=== PATIENT | female | born 1995 | race Caucasian/White ===

== ENCOUNTER 2023-12-28 14:14 | Outpatient (CLI) | payer OTHER, SELFPAY ==
[2023-12-28 14:54] LABS: Absolute Lymphocyte Count 1.86 X10^3/uL (0.83-4.51); Absolute Neutrophil Count 4.7 X10^3/uL (2.0-7.7); Basophil# 0.03 X10^3/uL; Basophil% 0.4 % (0-1); Eosinophils% 1.4 % (0-5); Hematocrit 35.6 % (37-47); Hemoglobin 12.1 g/dL (12.0-15.0); Lymphocyte # 1.86 X10^3/ul (0.83-4.51); Lymphocyte % 25.5 % (19-41); Mean Corpuscular Hgb 31.5 pg (27.0-32.0); Mean Corpuscular Volume 92.7 fL (81-99); Mean Platelet Vol. 9.6 fl (6.2-12.0); Monocyte# 0.62 X10^3/uL; Monocyte% 8.5 % (0-10); NRBC Flagged by Analyzer 0 % (0-5); Neutrophil # 4.67 X10^3/uL (2.7-7.7); Neutrophil % 63.9 % (47-70); Platelet Count 214 K/mm3 (150-450); RBC Distribution Width CV 12.5 % (11.6-14.6); Red Blood Count 3.84 M/mm3 (4.2-5.4); White Blood Count 7.3 K/mm3 (4.4-11.0)
[2023-12-28 15:57] LABS: HIV - WCH Non-Reactive (Nonreactive); Hepatitis B Surface Antigen Non-Reactive (Nonreactive); Hepatitis C Antibody Non-Reactive (Nonreactive); Rubella IgG Reactive (Nonreactive)
[2023-12-31 15:57] LABS: Syphilis Antibodies Non-reactive
[2023-12-31 21:07] LABS: Chlamydia By Nucleic Acid AMP Negative (Negative); Gonococcus By Nucleic Acid AMP Negative (Negative)
[2024-01-03 21:20] LABS: HPV Reflexed? NOT INDICATED
== END 2023-12-28 23:59 | disposition home or self-care (01) ==
PROVIDERS: Referring Provider Advanced Practice Midwife; Visit Provider Advanced Practice Midwife
DX: O09.90 Supervision of high risk pregnancy, unspecified, unspecified trimester (principal); Z3A.00 Weeks of gestation of pregnancy not specified; Z12.4 Encounter for screening for malignant neoplasm of cervix
CPT/HCPCS: 36415; 85025; 86703; 86762; 86780; 86803; 86850; 86900; 86901; 87086; 87340; 87491; 87591; 88175; G0145

== ENCOUNTER → 2024-05-15 | Outpatient (CLI) | payer OTHER, SELFPAY ==
[2024-05-15 17:13] LABS: Absolute Lymphocyte Count 1.49 X10^3/uL (0.83-4.51); Absolute Neutrophil Count 3.6 X10^3/uL (2.0-7.7); Basophil# 0.01 X10^3/uL; Basophil% 0.2 % (0-1); Eosinophil# 0.05 X10^3/uL; Eosinophils% 0.9 % (0-5); Hematocrit 31.2 % (37-47); Hemoglobin 10.2 g/dL (12.0-15.0); Lymphocyte # 1.49 X10^3/ul (0.83-4.51); Lymphocyte % 27.5 % (19-41); Mean Corp Hgb Conc 32.7 g/dL (32-36); Mean Corpuscular Hgb 31.5 pg (27.0-32.0); Mean Corpuscular Volume 96.3 fL (81-99); Mean Platelet Vol. 10.2 fl (6.2-12.0); Monocyte# 0.31 X10^3/uL; Monocyte% 5.7 % (0-10); NRBC Flagged by Analyzer 0 % (0-5); Neutrophil # 3.55 X10^3/uL (2.7-7.7); Neutrophil % 65.5 % (47-70); Platelet Count 219 K/mm3 (150-450); RBC Distribution Width CV 12.9 % (11.6-14.6); RBC Distribution Width SD 45.1 fl (35.1-43.9); Red Blood Count 3.24 M/mm3 (4.2-5.4); White Blood Count 5.4 K/mm3 (4.4-11.0)
[2024-05-15 17:34] LABS: Glucose Challenge Gest 1H 50g 136 mg/dL (70-140)
[2024-05-16 13:03] LABS: HIV - WCH Non-Reactive (Nonreactive); Syphilis Antibodies Non-reactive
== END | disposition home or self-care (01) ==
LOC: LAB 15:04
PROVIDERS: Referring Provider Obstetrics & Gynecology; Visit Provider Obstetrics & Gynecology
DX: O09.92 Supervision of high risk pregnancy, unspecified, second trimester (principal); Z3A.00 Weeks of gestation of pregnancy not specified; Z13.1 Encounter for screening for diabetes mellitus
CPT/HCPCS: 36415; 82950; 85025; 86703; 86780

== ENCOUNTER → 2024-07-02 | Outpatient (CLI) | payer OTHER, SELFPAY | END | disposition home or self-care (01) | PROVIDERS: Visit Provider Obstetrics & Gynecology | DX: O09.92 Supervision of high risk pregnancy, unspecified, second trimester (principal); Z3A.00 Weeks of gestation of pregnancy not specified | CPT/HCPCS: 87081 ==

== ENCOUNTER 2024-07-29 12:15 | Inpatient (IN) | payer OTHER, SELFPAY ==
[2024-07-29] VITALS (19 sets, daily range): BP systolic 114–141; BP diastolic 71–100; PULSE 52–86; RESP 15–18; TEMP 36.6–37.4; O2SAT 80–100; BMI 23.3
[2024-07-29] MEDS: 0.9% Saline Lock 10 ML Syringe IV (12:05)
--- NOTE | 2024-07-29 12:41 | HP.PCM.OB_ITS ---
HPI - General General Date of Admission: 07/29/24 Date of Service: 07/29/24 HPI Narrative TEENA CHO, is a 29 F 39.6 weeks who presents to unit in active labor. PIH labs drawn due to elevated BP. Maternal Data Information NASRIN Calculator Estimated Delivery Date Method Current WG Current Estimate 07/30/24 LMP (Certain) 39w 6d Final NASRIN: 07/30/24 Final NASRIN Source: US >20 weeks Gestational age: 39.6 PFSH PFSH Home Medications ?Medication ?Instructions ?Recorded ?Last Taken ?Type multivitamin no.47-iron fum 27 cap PO 12/21/23 Unknown History mg-folate no.1 1 mg-dha 300 mg capsule (PNV-DHA) Allergy/AdvReac Type Severity Reaction Status Date / Time No Known Allergies Allergy Verified 07/24/24 13:27 Family History Grandfather Diabetes maternal- type 2 Surgical History Previous section History of cholecystectomy [place] teeth extracted Social History adopted: No household members: spouse and children number of children: 2 current occupational status: employed current occupation: Teacher current occupational exposures/hazards: No pets and animals: No history of recent travel: No sexually active: Yes Smoking Status: Never smoker alcohol intake: never substance use type: does not use well-balanced diet: daily or most days caffeine: No eating out: 1-3 times/week during the past year weight has: remained stable what type of physical activity do you participate in: none jenna/restoration: Rastafarian seatbelt use: always do you feel safe at home: Yes additional social history: Luda- Oneal History 4 Elective abortions Hx Para 2 Spontaneous abortions 1 Hx # Term Pregnancies Ectopic pregnancies Hx # Pregnancies Multiple births # of living children 2 Past Pregnancies Del. Date Name GA/Weeks Outcome Route Bth Weight Gen Labor Lgth Anesthesia Del Locatn Provider FOB 06/14/18 Hi 39 live - full term 6#9oz [facility] 08/03/21 Allan 35 live - 5# Female spinal [facility] Dr. Joanne Lares Delivery Date: 08/03/21 Last Updated by: Veronica Keller placenta previa Visit Details Expected Delivery Route/Plan TOLAC patient counseled regarding risks/benefits of trial of labor versus repeat . ACOG/uptodate education given to patient. [] % likelihood of success per calculator TOLAC consent form signed: [] salesperson women's dresses joss juanita Plans Covid status: [] Flu vaccine: [] Tdap vaccine: declined Rhogam: na LARC form signed: declined movement and labor precautions reviewed. Problem list reviewed and updated with the most current plan of care details and appropriate orders placed. Relevant counseling for the gestational age provided. Continue routine care and follow up unless otherwise noted in visit notes/problem list details OB Flowsheet Initial Weight: Not Recorded Date -?-?-?-?-?-?-?-?-?-?-?-?- EGA Weight BP Urine Prot -?-?-?-?-?-?-?-?-?-?-?-?- Glucose FHR FuHt Pres Dilation -?-?-?-?-?-?-?-?-?-?-?-?- Effaced St Visit Note 12/28/23 -?-?-?-?-?-?-?-?-?-?-?-?- 9w 2d 120 lb 8 oz -?-?-?-?-?-?-?-?-?-?--?-?- 180 -?-?-?-?-?-?-?-?-?-?-?-?- kw CRL cons with dates. no NIPT. desires TOLAC 01/24/24 -?-?-?-?-?-?-?-?-?-?-?-?- 13w 1d 121 lb 2 oz 118/85 Nega tive -?-?-?-?-?-?-?-?-?-?-?-?- 500 g/dL 158 -?-?-?-?-?-?-?-?-?-?-?-?- MH-No VB. Nausea improved. Normal PN labs. MH-No VB. Nausea improved. N ormal PN labs. Urine was neg/neg. 02/20/24 -?-?-?-?-?-?-?-?-?-?-?-?- 17w 0d 125 lb Negative -?-?-?-?-?-?-?-?-?-?-?-?- Negative 150 -?-?-?-?-?-?-?-?-?-?-?-?- SM- no vb lof cr amping tolac discussion 03/19/24 -?-?-?-?-?-?-?-?-?-?-?-?- 21w 0d 130 lb 4 oz 128/84 -?-?-?-?-?-?-?-?-?-?-?-?- 151 21 -?-?-?-?-?-?-?-?-?-?-?-?- JV- no lof, vagi na lbleeding, or cramping. pt has decided not to do the NIPT. 03/21/24 -?-?-?-?-?-?-?-?-?-?-?-?- 21w 2d 130 lb 122/75 Negative -?-?-?-?-?-?-?-?-?-?-?-?- Negative 154 21 -?-?-?-?-?-?-?-?-?-?-?-?- LC- pt with pink spotting x2, ended yeast infection treatment 5 days ago. speculum exam LC- pt with pink spotting x2 , ended yeast infection treatment 5 days ago. speculum exam- white curdy discharge. diflucan ordered. 04/16/24 -?-?-?-?-?-?-?-?-?-?-?-?- 25w 0d 138 lb 116/80 Negative -?-?-?-?-?-?-?-?-?-?-?-?- Negative 145 25 -?-?-?-?-?-?-?-?-?-?-?-?- SM- n ovb lof go od fm no regular ctx 05/15/24 -?-?-?-?-?-?-?-?-?-?-?-?- 29w 1d 139 lb 4 oz 119/77 Nega tive -?-?-?-?-?-?-?-?-?-?-?-?- Negative 130 30 -?-?-?-?-?-?-?-?-?-?-?-?- KW- no vb/lof/ct x. good fm. labs pending. [facility] today. declined TDAP and FLU 05/28/24 -?-?-?-?-?-?-?-?-?-?-?-?- 31w 0d 141 lb 4 oz 126/88 Nega tive -?-?-?-?-?-?-?-?-?-?-?-?- Negative 150 31.5 -?-?-?-?-?-?-?-?-?-?-?-?- JV- pt failed he r 1 hr. 3 hr ordered but is very upset about having to miss work. trying to coordinate doing it on a sunday on L&D or something where she doesn not have to miss work. (teacher) 06/12/24 -?-?-?-?-?-?-?-?-?-?-?-?- 33w 1d 143 lb 128/83 -?-?-?-?-?-?-?-?-?-?-?-?- -?-?-?-?-?-?-?-?-?-?-?-?- JV- patient refu sed to do her GTT even after arranging a weekend GCT with the lab and L&D. She states that she did not want to do it. She has been checking her glucose levels.fasting levels are 80's. 1 hr pp are all less than 130 06/25/24 -?-?-?-?-?-?-?-?-?-?-?-?- 35w 0d 140 lb 4 oz 137/83 Nega tive -?-?-?-?-?-?-?-?-?-?-?-?- Negative 140 35 -?-?-?-?-?-?-?-?-?-?-?-?- JV- fasting crystal ls still 80's. now taking iron and she feels like she has more energy. 07/02/24 -?-?-?-?-?-?-?-?-?-?-?-?- 36w 0d 143 lb 2 oz 145/86 118/78 Negative -?-?-?-?-?-?-?-?-?-?-?-?- Negative 140 37 Cephalic -?-?-?-?-?-?-?-?-?-?-?-?- Sm- no vb lof go od fm no rgular ctx no DOMINGUEZ BV GBS collected 07/10/24 -?-?-?-?-?-?-?-?-?-?-?-?- 37w 1d 143 lb 6 oz 129/89 Nega tive -?-?-?-?-?-?-?-?-?-?-?-?- Negative 130 37 Cephalic -?-?-?-?-?-?-?-?-?-?-?-?- SM- no vb lof go od fm no reuglar ctx 07/18/24 -?-?-?-?-?-?-?-?-?-?-?-?- 38w 2d 145 lb 6 oz 137/80 Nega tive -?-?-?-?-?-?-?-?-?-?-?-?- Negative 141 38 Cephalic 1 -?-?-?-?-?-?-?-?-?-?-?-?- 80 JV- no l of, vaginal bleeding, or dec fm. 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 07/24/24 -?-?-?-?-?-?-?-?-?-?-?-?- 39w 1d 144 lb 4 oz 143/91 Nega tive -?-?-?-?-?-?-?-?-?-?-?-?- Negative 140 39 Cephalic 3 -?-?-?-?-?-?-?-?-?-?-?-?- 70 -2 SM- no vb lof good fm no regular ctx NST FHR Rate Baby A Baseline: 125 Variability:: Moderate Accelerations:: 15 x 15 Decelerations:: None NST Reactive:: Yes FHR Category:: Category I Uterine Activity:: 2-3 minutes ROS Constitutional Constitutional: Denies change in weight, fatigue, fever(s), headache(s), poor appetite or weakness Eyes Eyes: Denies blurry vision, change in vision, floaters, seeing flashes or spots in vision ENT HEENT: Denies dizziness, headache(s), loss taste/smell or sore throat Cardiovascular Cardiovascular: Denies chest pain, dizziness, dyspnea, irregular heart rhythm, lightheadedness, palpitations or rapid heart rate Respiratory/Chest Respiratory/Chest: Denies change in mental status, chest tightness, cough, dyspnea or breast pain Gastrointestinal Gastrointestinal: Denies anorexia, chewing difficulty, constipation, diarrhea or weight changes Genitourinary Genitourinary: Denies difficulty urinating, dysuria, flank pain, genital pain, urinary frequency or urinary urgency Musculoskeletal Musculoskeletal: Denies back pain, difficulty walking, extremity pain, joint pain, muscle cramps or muscle weakness Integumentary Integumentary: Denies lesions or unusual bruising Neurologic Neurologic: Denies abnormal movements, abnormal speech, dizziness, numbness, seizure-like activity, syncope or weakness Psychiatric Psychiatric: Denies behavioral changes, change in appetite, confusion, depression, homicidal ideation, suicidal ideation or suicidal thoughts Endocrine Endocrinology: Denies excessive sweating, polydipsia or polyuria Hematologic/Lymphatic Hematologic/Lymphatic: Denies anemia Allergic/Immunologic Allergic/Immunologic: Denies itchy eyes, lip swelling, throat swelling, tongue swelling or wheezing Vital Signs Vital Signs Vital Signs: 07/29/24 10:36 07/29/24 10:36 07/29/24 10:36 Temperature Temperature Source Pulse Rate 74 Respiratory Rate Blood Pressure 137/100 H BP Systolic 137 BP Diastolic 100 Pulse Ox 98 07/29/24 10:36 07/29/24 10:36 07/29/24 10:36 Temperature Temperature Source Tympanic Pulse Rate Respiratory Rate 15 Blood Pressure BP Systolic BP Diastolic Pulse Ox 100 07/29/24 10:36 07/29/24 10:58 07/29/24 10:58 Temperature 97.8 F Temperature Source Pulse Rate 66 Respiratory Rate Blood Pressure 138/92 H BP Systolic 138 BP Diastolic 92 Pulse Ox Physical Exam Const alert, oriented x3 and no apparent distress General Appearance: cooperative Orientation / Consciousness: awake HEENT normocephalic Neck full ROM Lymph Lymphatic: no lymphadenopathy noted Chest inspection of chest normal Resp normal respiratory effort and normal air movement Effort and Inspection: able to speak in complete sentences and symmetric chest movement GI soft to palpation and non-tender Inspection: gravid Palpation: soft; Negative for tender external exam normal Back/Spine normal to inspection Extremity normal to inspection and full ROM Skin no rashes or lesions noted Psych mental status grossly normal Appearance: grossly normal Speech: normal speech Labs Labs Labs: Blood Type A POSITIVE Antibody Screen NEGATIVE Hct 31.2 % (37-47) L Hgb 10.2 g/dL (12.0-15.0) L Syphilis Total Ab Non-reactive Rubella IgG Antibody Reactive (Nonreactive) Hep Bs Antigen Non-Reactive (Nonreactive) Hepatitis C Antibody Non-Reactive (Nonreactive) Chlamydia DNA (CHERRIE) Negative (Negative) N.gonorrhoeae DNA (CHERRIE) Negative (Negative) HIV 1&2 Antibody Non-Reactive (Nonreactive) Glucose 1 Hr 50 gm 136 mg/dL (70-140) Assessment & Plan (1) Active labor: PLAN: Patient presents IAL, plan expectant management for , pitocin/AROM PRN if needed. Desires TOLAC. Pain management: plans no epidural. GBS neg Management of any complications: see problem list I have reviewed the [facility] and made any clinically relevant updates. Dr Wright aware of assessment, plan and admission. Agrees with above. (2) Anemia affecting : COMMENT: start po iron (3) Abnormal glucose affecting : COMMENT: reviewed BS and WNL did home testing. (4) Echogenic intracardiac focus of fetus on ultrasound: COMMENT: declines nipt. plan 36 week growth ultrasound (5) Supervision of high-risk : QUALIFIERS: Trimester: second trimester Qualified Code(s): O09.92 - Supervision of high risk , unspecified, second trimester COMMENT: PRR, , NASRIN 07/30/24 boy, [facility] NAFISA DoAllan Luda (6) : QUALIFIERS: Weeks of gestation: 39 weeks Qualified Code(s): Z3A.39 - 39 weeks gestation of COMMENT: declined genetic & carrier testing. GBS NEG (7) Anxiety: COMMENT: began 1st (8) Previous section: COMMENT: 2021-complete previa. previous , plan TOLAC Charges/Coding Multi Select Codes Urinary/Genital Urinary/Genital CPT Codes: No Charge
[2024-07-29 13:03] LABS: Hematocrit 32.7 % (37-47); Hemoglobin 10.7 g/dL (12.0-15.0); Mean Corp Hgb Conc 32.7 g/dL (32-36); Mean Corpuscular Hgb 29.9 pg (27.0-32.0); Mean Corpuscular Volume 91.3 fL (81-99); Platelet Count 198 K/mm3 (150-450); RBC Distribution Width CV 13.2 % (11.6-14.6); RBC Distribution Width SD 42.7 fl (35.1-43.9); Red Blood Count 3.58 M/mm3 (4.2-5.4); White Blood Count 6.6 K/mm3 (4.4-11.0)
[2024-07-29 13:28] LABS: AST(SGOT) 29 U/L (15-37); Alanine Aminotransfer ALT/SGPT 26 U/L (13-56); Creatinine, Serum 0.53 mg/dL (0.55-1.02); EST Glomerular Filtration Rate 143 mL/min (>60); Est Glom Filt Rate - Afr Amer 173 mL/min (>60); Uric Acid 4.5 mg/dL (2.6-6.0)
[2024-07-29 13:43] LABS: Protein, Urine (Random) 31.4 mg/dL (<11.9); Protein:Creat Ratio 720 mg/g CRE (0-200)
[2024-07-29 13:49] LABS: Syphilis Antibodies Non-reactive
[2024-07-29] MEDS: Lidocaine 1% (20 ml mdv) 20 ML Vial INFILT (16:20)
--- NOTE | 2024-07-29 16:41 | OB.VAGDELI_ITS ---
Assessment & Plan (1) Vaginal delivery: COMMENT: KW IAL 39.6 Boy (2) Anemia affecting : COMMENT: start po iron (3) Abnormal glucose affecting : COMMENT: reviewed BS and WNL did home testing. (4) Echogenic intracardiac focus of fetus on ultrasound: COMMENT: declines nipt. plan 36 week growth ultrasound (5) Supervision of high-risk : QUALIFIERS: Trimester: second trimester Qualified Code(s): O09.92 - Supervision of high risk , unspecified, second trimester COMMENT: PRR, , NASRIN 07/30/24 boy, [facility] Allan Do Luda (6) : QUALIFIERS: Weeks of gestation: 39 weeks Qualified Code(s): Z3A.39 - 39 weeks gestation of COMMENT: declined genetic & carrier testing. GBS NEG (7) Anxiety: COMMENT: began 1st (8) Previous section: COMMENT: 2021-complete previa. previous , plan TOLAC Maternal Data Information NASRIN Calculator Estimated Delivery Date Method Current WG Current Estimate 07/30/24 LMP (Certain) 39w 6d Final NASRIN: 07/30/24 Final NASRIN Source: US >20 weeks Gestational age: 39.6 weeks Vaginal Delivery Maternal Presentation Maternal Presentation: Active Labor Maternal Presentation: Presented to unit for active labor. Vaginal Delivery Information Procedure Performed: Spontaneous Vaginal Delivery Surgeon/Practitioner: Jasmyne Nieves Date of Procedure: 07/29/24 Pre-Procedure Diagnosis: see problem list Post-Procedure Diagnosis: same Type of anesthesia: None Estimated Blood Loss: 200 Time of Delivery: 16:14 Findings Description of procedure: Progressed well to 10cm dilated and made steady progress with effective maternal pushing. Delivered the head in LISA presentation. The head was delivered atraumatically and no nuchal cord was identified. The anterior and posterior shoulders delivered without complication followed by the rest of the and the infant was placed on the maternal abdomen. Delayed cord clamping was employed for approximately 3 minutes. Cord was clamped and cut and gentle traction was applied to the cord and the placenta delivered spontaneously. Immediately following, it was noted to be intact with a 3 vessel cord. Uterine bleeding stable. The perineum and vagina were inspected and noted to have a first degree laceration which was repaired with 3-0 Vicryl in the usual fashion. EBL was 200. Patient and infant tolerated delivery well. Apgars 9/9. Dr Wright notified of vaginal delivery and orders reviewed. Physician agrees with current plan of care. 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
--- NOTE | 2024-07-29 16:45 | DCINST_ITS ---
Discharge Instructions Diet Discharge Diet: No restrictions DC O2, CPAP, BIPAP needs Home O2 Discharge instructions: No Dressing / Incision Discharge Activity: Return to Normal Activity May resume sexual activity in: 6-8 weeks Dressing / Incision Call your doctor if you observe: Fever of 101 or Higher, Coldness, Increased Pain, Numbness or Tingling, Change in Color, Inability to urinate, Inability to have a bowel movement, Using more than 1 pad per hour, Shortness of breath, Dizziness, Fainting spells, Swelling in the ankles, Chest pain, Increased p alpitations (irregular heartbeat), Calf discomfort and Uncontrolled pain Follow Up Care Please Follow Up With: Jasmyne Nieves CNM When: Please call the office to schedule your follow up appointment in 6 weeks. If you had high blood pressure please call to schedule an appointment in 2 weeks. Test Results: Test results from this visit will be discussed in further detail at your follow- up appointment, if applicable. Discharge Plan Admission Admit Date/Time: 07/29/24 12:15 Attending Provider: Rosana Gonzalez Primary Care Provider: Rosalie Jha Discharge Orders/Prescriptions Prescriptions: No Action PNV-DHA 27 mg iron-1 mg -300 mg capsule PO Referrals / Follow Up: Rosalie Jha MD [Primary Care Provider] -
[2024-07-29] MEDS: Ibuprofen 600 MG Tablet PO (17:45)
[2024-07-29] MEDS: Acetaminophen 500 MG Tablet 1000 MG PO (20:42)
[2024-07-30] VITALS (9 sets, daily range): BP systolic 118–126; BP diastolic 76–88; PULSE 57–81; RESP 14–16; TEMP 36.8–37.4; O2SAT 96–99
[2024-07-30] MEDS: Ibuprofen 600 MG Tablet PO ×2 (08:02→17:06)
--- NOTE | 2024-07-30 09:54 | PN.OBGYN_ITS ---
Subjective Subjective Patient doing well without complaints. Tolerating PO. Ambulating and voiding without difficulty. Feeding well. Denies chest pain, shortness of breath, calf pain/swelling, fevers, chills, lightheadedness. She states that due to lack of sleep for the last 2 days, she would feel more comfortable staying one more night here rather than going home to a busy household of kids. Objective Data Objective Data Vital Signs: Vital Signs Temp Pulse Resp BP Pulse Ox O2 Del Method 99.3 F H 57 L 16 126/84 H 99 Room Air 07/30/24 08:52 07/30/24 08:52 07/30/24 08:52 07/30/24 08:52 07/30/24 08:52 07/30/24 08:52 Oxygen Delivery Method Room Air Weight: 145 lb Body Mass Index (BMI) 23.3 Intake & Output: Intake and Output for Last 24 Hours 07/28/24 07/29/24 07/30/24 23:59 23:59 23:59 Output Total 200 / 200 Balance -200 / -200 Lab / Micro Data 07/29/24 12:05 07/29/24 12:05 Labs: Laboratory Results - last 24 hr 07/29/24 12:05: WBC 6.6, RBC 3.58 L, Hgb 10.7 L, Hct 32.7 L, MCV 91.3, MCH 29.9, MCHC 32.7, RDW Std Deviation 42.7, RDW Coeff of Martha 13.2, Plt Count 198, MPV 12.0, Creatinine 0.53 L, Est GFR (MDRD) Af Amer 173, Est GFR (MDRD) Non-Af 143, Uric Acid 4.5, AST 29, ALT 26, U Random Total Protein 31.4 H, Urine Creatinine 43.60, Protein/Creatinin Ratio 720 H, Syphilis Total Ab Non-reactive, Blood Type A POSITIVE, Antibody Screen NEGATIVE ROS Constitutional Constitutional: Denies chills, fatigue, fever(s), poor appetite or weakness Eyes Eyes: Denies blurry vision, change in vision, seeing flashes or spots in vision ENT HEENT: Denies dizziness, headache(s), loss taste/smell or sore throat Cardiovascular Cardiovascular: Denies chest pain, dizziness, dyspnea, irregular heart rhythm, palpitations or rapid heart rate Respiratory/Chest Respiratory/Chest: Denies chest tightness, cough, dyspnea or breast pain Gastrointestinal Gastrointestinal: Denies abdominal pain, constipation or vomiting Genitourinary Genitourinary: Denies dysuria or flank pain Musculoskeletal Musculoskeletal: Denies difficulty walking, joint pain, limited range of motion or numbness Neurologic Neurologic: Denies abnormal movements, abnormal speech, dizziness, numbness, seizure-like activity or syncope Psychiatric Psychiatric: Denies anxiety, behavioral changes, change in appetite, confusion, depression or suicidal thoughts Physical Exam Const alert, oriented x3 and no apparent distress General Appearance: cooperative and comfortable Resp normal respiratory effort Cardio regular rate GI normal to inspection, nondistended, normoactive bowel sounds GI Narrative: uterus is firm below umbilicus Palpation: soft Back/Spine no CVA tenderness and thoraco-lumbar ROM normal Extremity normal to inspection, no clubbing, cyanosis or edema, no calf tenderness and no pedal edema Psych mental status grossly normal, thought process normal, cooperative, affect normal, speech normal, activity/motor behavior normal, denies homicidal ideation and denies suicidal ideation Assessment & Plan (1) Vaginal delivery: COMMENT: KW IAL 39.6 Boy (2) Anemia affecting : COMMENT: start po iron (3) Abnormal glucose affecting : COMMENT: reviewed BS and WNL did home testing. (4) Echogenic intracardiac focus of fetus on ultrasound: COMMENT: declines nipt. plan 36 week growth ultrasound (5) Supervision of high-risk : QUALIFIERS: Trimester: second trimester Qualified Code(s): O09.92 - Supervision of high risk , unspecified, second trimester COMMENT: PRR, , NASRIN 07/30/24 boy, [facility] Allan Ignacio Luda (6) : QUALIFIERS: Weeks of gestation: 39 weeks Qualified Code(s): Z 3A.39 - 39 weeks gestation of COMMENT: declined genetic & carrier testing. GBS NEG (7) Anxiety: COMMENT: began 1st (8) Previous section: COMMENT: 2021-complete previa. previous , plan TOLAC PLAN: Plan s/p PPD # 1 1. routine post delivery care 2. breast feeding- support given 3. rh positive 4. rubella immune 5. anemia- continue iron 6. plan for dc to home tomorrow.
[2024-07-31 02:55] VITALS: PULSE 80; O2SAT 98
[2024-07-31 02:56] VITALS: BP 113/70; PULSE 57; PULSE 64; RESP 16; TEMP 37.1; O2SAT 99
[2024-07-31 07:32] VITALS: BP 121/79; PULSE 82
[2024-07-31 07:34] VITALS: BP 121/79; PULSE 88; RESP 16; TEMP 36.8; O2SAT 97
--- NOTE | 2024-07-31 09:24 | PCM.PN.CNM ---
Subjective Subjective Patient doing well without complaints. Tolerating PO. Ambulating and voiding without difficulty. Feeding well. Denies chest pain, shortness of breath, calf pain/swelling, fevers, chills, lightheadedness. Objective Data Objective Data Vital Signs: Vital Signs Temp Pulse Resp BP Pulse Ox O2 Del Method 98.3 F 88 16 121/79 H 97 Room Air 07/31/24 07:34 07/31/24 07:34 07/31/24 07:34 07/31/24 07:34 07/31/24 07:34 07/31/24 07:34 Oxygen Delivery Method Room Air Weight: 145 lb Body Mass Index (BMI) 23.3 Intake & Output: Intake and Output for Last 24 Hours 07/29/24 07/30/24 07/31/24 23:59 23:59 23:59 Output Total 200 / 200 Balance -200 / -200 Lab / Micro Data 07/29/24 12:05 07/29/24 12:05 Physical Exam Const alert, oriented x3 and no apparent distress General Appearance: cooperative and comfortable Resp normal respiratory effort Cardio regular rate GI normal to inspection, nondistended, normoactive bowel sounds GI Narrative: uterus is firm below umbilicus Palpation: soft Back/Spine no CVA tenderness and thoraco-lumbar ROM normal Extremity normal to inspection, no clubbing, cyanosis or edema, no calf tenderness and no pedal edema Psych mental status grossly normal, thought process normal, cooperative, affect normal, speech normal, activity/motor behavior normal, denies homicidal ideation and denies suicidal ideation Assessment & Plan (1) Vaginal delivery: COMMENT: KW IAL 39.6 Boy (2) Supervision of high-risk : QUALIFIERS: Trimester: second trimester Qualified Code(s): O09.92 - Supervision of high risk , unspecified, second trimester COMMENT: PRR, , NASRIN 07/30/24 boy, DakotaAllan William Luda (3) : QUALIFIERS: Weeks of gestation: 39 weeks Qualified Code(s): Z3A.39 - 39 weeks gestation of COMMENT: declined genetic & carrier testing. GBS NEG (4) Anxiety: COMMENT: began 1st (5) Previous section: COMMENT: 2021-complete previa. previous , plan TOLAC PLAN: Plan s/p PPD # 2 1. routine post delivery care 2. breast feeding- support given 3. rh positive 4. rubella immune 5. d/c home today
--- NOTE | 2024-07-31 09:25 | PCM.DC.SUM ---
Providers Date of Admission: 07/29/24 Primary Care Physician: Dr. Rosalie Jha MD Reason For Visit: VAGINAL DELIVERY Diagnosis Discharge Diagnosis (1) Vaginal delivery: Status: Acute Code(s): O80 - Encounter for full-term uncomplicated delivery (2) Supervision of high-risk : Status: Acute Code(s): O09.90 - Supervision of high risk , unspecified, unspecified trimester Qualifiers: Trimester: second trimester Qualified Code(s): O09.92 - Supervision of high risk , unspecified, second trimester (3) : Status: Acute Code(s): Z34.90 - Encounter for supervision of normal , unspecified, unspecified trimester Qualifiers: Weeks of gestation: 39 weeks Qualified Code(s): Z3A.39 - 39 weeks gestation of (4) Anxiety: Status: Acute Code(s): F41.9 - Anxiety disorder, unspecified (5) Previous section: Status: Acute Code(s): Z98.891 - History of uterine scar from previous surgery Plan s/p PPD # 2 1. routine post delivery care 2. breast feeding- support given 3. rh positive 4. rubella immune 5. d/c home today Medications at Discharge Home Medications multivitamin no.47-iron fum 27 mg-folate no.1 1 mg-dha 300 mg capsule (PNV-DHA) 2 cap PO DAILY 12/21/23 Hospital Course Operations None Procedures None Summary of Care Provided Minutes Spent on Discharge: 15 Hospital Course: at 39.6 s/p with routine pp course. Weight / BMI Weight Weight: 145 lb Body Mass Index (BMI) 23.3 ABG / Lab / Microbiology Data 07/29/24 12:05 07/29/24 12:05 D/C Instructions Discharge Diet: No restrictions May resume sexual activity in: 6-8 weeks Call your doctor if you observe: Fever of 101 or Higher, Coldness, Increased Pain, Numbness or Tingling, Change in Color, Inability to urinate, Inability to have a bowel movement, Using more than 1 pad per hour, Shortness of breath, Dizziness, Fainting spells, Swelling in the ankles, Chest pain, Increased palpitations (irregular heartbeat), Calf discomfort and Uncontrolled pain DC O2, CPAP, BIPAP Needs Home O2 Discharge instructions: No Please Follow Up With: Jasmyne Nieves CNM When: Please call the office to schedule your follow up appointment in 6 weeks. If you had high blood pressure please call to schedule an appointment in 2 weeks. Meaningful Use Info Meaningful Use Meaningful Use Diagnoses (Choose all that apply): None applicable Ischemic Stroke Statin Dosing Therapy Reference: STATIN DOSE THERAPY REFERENCE: * Patients > 75 years receive moderate or high dose statin therapy. * Patients 75 years or YOUNGER should receive HIGH intensity statin dose unless contraindicated. You will be required to document reason for non-treatment if statin daily dose does not meet guidelines. HIGH DOSE STATIN THERAPY DAILY Atorvastatin > than or = to 40 mg Rosuvastatin > than or = to 20 mg Amlodipine + Atorvastatin > than or = to 2.5/40 mg Ezetimibe + Simvastatin 10/80 mg Simvastatin 80mg Discharge Plan Admission Admit Date/Time: 07/29/24 12:15 Attending Provider: Rosana Gonzalez Primary Care Provider: Rosalie Jha Discharge Orders/Prescriptions Prescriptions: No Action PNV-DHA 27 mg iron-1 mg -300 mg capsule 2 cap PO DAILY Referrals / Follow Up: Rosalie Jha MD [Primary Care Provider] - Disposition Disposition (needs filled in before D/C Order can be placed): Home, Self Care
== END 2024-07-31 10:45 | disposition home or self-care (01) | DRG 807 ==
LOC: WPOUT 12:20 → WP 12:20
PROVIDERS: Admitting Provider Obstetrics & Gynecology; PCP Family Medicine; Referring Provider Obstetrics & Gynecology; Visit Provider Obstetrics & Gynecology
DX: O99.892 Other specified diseases and conditions complicating childbirth (principal); Z37.0 Single live birth; O99.344 Other mental disorders complicating childbirth; F41.9 Anxiety disorder, unspecified; O99.02 Anemia complicating childbirth; O99.814 Abnormal glucose complicating childbirth; O34.219 Maternal care for unspecified type scar from previous cesarean delivery; Z3A.39 39 weeks gestation of pregnancy; R03.0 Elevated blood-pressure reading, without diagnosis of hypertension; O70.0 First degree perineal laceration during delivery
CPT/HCPCS: 59025; 59050; 82565; 82570; 84156; 84450; 84460; 84550; 85027; 86780; 86850; 86900; 86901; 99221; A4216; G0378